=== PATIENT | male | born 1985 | race Caucasian/White ===

== ENCOUNTER → 2024-12-11 12:27 | Outpatient (CLI) | payer OTHER, SELFPAY ==
--- NOTE | 2024-12-11 12:30 | DI.RAD.S_ITS ---
PROCEDURE: FL JOINT INJECTION LARGE LT
[2024-12-11] MEDS: LIDOCAINE 1% 20 ML INJ (13:37)
[2024-12-11] MEDS: TRIAMCINOLONE 40 MG/ML VIAL INTRA-ARTI (13:39)
== END ==
LOC: RAD 12:29
PROVIDERS: Visit Provider Radiology Diagnostic Radiology
DX: S49.90XA Unspecified injury of shoulder and upper arm, unspecified arm, initial encounter (principal); X58.XXXA Exposure to other specified factors, initial encounter
CPT/HCPCS: 20610; 77002; Q9967